=== PATIENT | female | born 1995 | race Caucasian/White ===

== ENCOUNTER 2018-02-19 10:02 | Inpatient (IN) | payer MEDICAID, OTHER ==
[~2018-02-19] VITALS: Ht 162.6 cm; Wt 111.6 kg
[~2018-02-19 10:02] MED LIST: FERR-15 PO; FERR-252 PO; IBUP-974 PO; PREN-385 PO
[2018-02-19 10:09] VITALS: BP 136/79
--- NOTE | 2018-02-19 10:14 | NUR ---
gave report to Alonzo LUDWIG. Patient to restroom to obtain UA sample.
--- NOTE | 2018-02-19 10:14 | NUR ---
PT AMBULATES TO BED 4
--- NOTE | 2018-02-19 10:15 | NUR ---
22/F BIB SELF with c/o right mid back pain x 3 days. Dizziness and headache x yesterday. Patient sts she is 17 wks . LMP 09/23/17. . Patient denies any vaginal bleeding or recent injury or fall. DENIES N/V/D; SKIN IS PINK/WARM/DRY; AAOX4 WITH EVEN AND STEADY GAIT; LUNGS CLEAR BL; HR EVEN AND REGULAR; PT DENIES ANY FEVER, CP, SOB, OR COUGH AT THIS TIME; PATIENT STATES PAIN OF 8/10 AT THIS TIME. PATIENT POSITIONED FOR COMFORT; HOB ELEVATED; BEDRAILS UP X2; BED DOWN. ER MD MADE AWARE OF PT STATUS.
--- NOTE | 2018-02-19 10:15 | NUR ---
Note maxione in EDM - 02/19/18 at 1133 by [facility] / with c/o right mid back pain x 3 days. Dizziness and headache x yesterday. Patient sts she is 17 wks . LMP 09/23/17. . Patient denies any vaginal bleeding or recent injury or fall. hx--patient denies rx-- vitamins
--- NOTE | 2018-02-19 10:32 | NUR ---
Patient being evaluated by DR SERNA at bedside.
[2018-02-19] MEDS ORDERED: NACL 0.9% 1,000 ML IV ONE (10:40)
[2018-02-19] MEDS ORDERED: IBUPROFEN 400 MG TAB PO ONE (10:40)
--- NOTE | 2018-02-19 11:08 | NUR ---
US AT BEDSIDE
[2018-02-19 11:46] LABS: BASOPHILS % (AUTO) 0.4 % (0.0-2.0); EOSINOPHILS % (AUTO) 0.1 % (0.0-4.0); HEMATOCRIT 32.7 % (36-48); HEMOGLOBIN 11.3 g/dL (12.0-16.0); LYMPHOCYTES # (AUTO) 1.2 K/uL (2.5-16.5); LYMPHOCYTES % (AUTO) 12.8 % (20.5-51.1); MEAN CORPUSCULAR HEMOGLOBIN 28 pg (27-31); MEAN CORPUSCULAR HGB CONC 35 g/dL (33-37); MEAN CORPUSCULAR VOLUME 80.6 fL (80-94); MONOCYTES # (AUTO) 0.8 K/uL (0.8-1.0); MONOCYTES % (AUTO) 8.5 % (1.7-9.3); NEUTROPHILS # (AUTO) 7.2 K/uL (1.8-7.7); NEUTROPHILS % (AUTO) 78.2 % (42.2-75.2); PLATELET COUNT (AUTO) 196 K/uL (140-450); RED BLOOD CELL COUNT(AUTO) 4.06 MIL/uL (4.20-5.40); RED CELL DISTRIBUTION WIDTH 13.5 % (11.6-13.7); WHITE BLOOD COUNT (AUTO) 9.2 K/uL (4.8-10.8)
[2018-02-19 11:50] LABS: BILIRUBIN,URINE NEGATIVE (NEGATIVE); BLOOD, URINE NEGATIVE (NEGATIVE); COLOR,URINE YELLOW (YELLOW); LEUKOCYTE ESTERASE ,URINE 2+ (NEGATIVE); NITRITE, URINE NEGATIVE (NEGATIVE); UGLUCOSE NEGATIVE (NEGATIVE)
[2018-02-19 11:58] LABS: ANION GAP 14.5 (8-16); CARBON DIOXIDE 21.8 mmol/L (21-32); CREATININE 0.6 mg/dL (0.6-1.3); POTASSIUM 3.3 mmol/L (3.5-5.1)
[2018-02-19 12:04] LABS: ALBUMIN 2.8 g/dL (3.4-5.0); TOTAL BILIRUBIN 0.4 mg/dL (0.0-1.0)
[2018-02-19 12:16] LABS: APPEARANCE,URINE HAZY (CLEAR); RBC,URINE 0-5 (RARE) /HPF (0-5); WBC,URINE 16-25 (MOD) /HPF (0-5)
[2018-02-19] MEDS ORDERED: cefTRIAXone 1,000 MG VIAL ONE (13:06)
--- NOTE | 2018-02-19 13:08 | NUR ---
LAB AT BEDSIDE FOR BLOOD C/S .
[2018-02-19] MEDS: NACL 0.9% 1,000 ML IV SCH (14:10)
[2018-02-19] MEDS ORDERED: HYDROcodone/APAP 5/325 MG 1 TAB TAB PO PRN (14:10)
[2018-02-19] MEDS ORDERED: LORazepam 2 MG/ML VIAL IVP PRN (14:10)
[2018-02-19] MEDS ORDERED: ACETAMINOPHEN 325 MG TAB PO PRN (14:10)
[2018-02-19] MEDS ORDERED: ONDANSETRON 4 MG/2 ML VIAL IVP PRN (14:10)
[2018-02-19] MEDS ORDERED: MORPHINE SULFATE 2 MG/ML SYR IVP PRN (14:10)
--- NOTE | 2018-02-19 14:43 | NUR ---
PT TAKEN TO THE FLOOR
--- NOTE | 2018-02-19 14:55 | NUR ---
Patient will be admitted to care of DR BLAIR. Admited to MS. Will go to room 121A. Belongings list completed. Report to AYDEE LUDWIG.
--- NOTE | 2018-02-19 15:00 | NUR ---
RECEIVED BEDSIDE REPORT FROM ER NURSE. PATIENT IS AWAKE, ALERT AND ORIENTEDX4. NO SIGNS OF DISTRESS ON ROOM AIR. IV ON L HAND 22G INFUSING NS AT 80ML/HR. IV IS CLEAN, DRY AND INTACT. VITALS ARE WITHIN NORMAL LIMITS. MRSA SCREENING IS DONE. PATIENT IS HUNGRY, ORDERED HER FOOD. SKIN IS INTACT. PATIENT HAS A LITTLE PAIN BUT IT IS TOLERABLE. BED IN LOW POSITION. CALL LIGHT WITHIN REACH. WILL CONTINUE TO MONITOR THE PATIENT.
[2018-02-19 15:10] VITALS: BP 137/70
--- NOTE | 2018-02-19 16:42 | NUR ---
ADMINISTERED MEDS. PATIENT HAS A SLIGHT FEVER OF 99.4 AND CHILLS, DR IS AWARE. PATIENT TOLERATED MED WELL. WILL RECHECK TEMP. BED IN LOW POSITION. CALL LIGHT WITHIN REACH. WILL CONTINUE TO MONITOR THE PATIENT.
--- NOTE | 2018-02-19 17:42 | NUR ---
RECHECK TEMP IT WAS 98.6. GAVE PATIENT A ICE PACK FOR HER HEAD AND REMOVED BLANKETS TO PREVENT FEVER
--- NOTE | 2018-02-19 19:05 | NUR ---
GAVE BEDSIDE REPORT TO SWITCHING CLERK NURSE. PATIENT IN STABLE CONDITION
--- NOTE | 2018-02-19 19:06 | NUR ---
RECEIVED BEDSIDE REPORT FROM DAY NURSE ROSINA RN, PATIENT IS AWAKE, ALERT AND ORIENTEDX4. NO SIGNS OF DISTRESS ON ROOM AIR. IV ON L HAND 22G INFUSING NS AT 80ML/HR. IV IS CLEAN, DRY AND INTACT. VITALS ARE WITHIN NORMAL LIMITS. SKIN IS INTACT. PATIENT DENIES PAIN AT THIS TIME. INITIAL ASSESSMENT COMPLETED. PLAN OF CARE DISCUSSED WITH PT, VERBALIZED UNDERSTANDING. BED IN LOW POSITION. CALL LIGHT WITHIN REACH. WILL CONTINUE TO MONITOR THE PATIENT.
[2018-02-19 20:00] VITALS: BP 126/68
--- NOTE | 2018-02-19 20:09 | NUR ---
PAGED DR. BACH BECAUSE PT REQUESTS TO SHOWER
--- NOTE | 2018-02-19 20:13 | NUR ---
DR. BACH STATES NO SHOWER AND PT CAN ONLY HAVE SPONGE BATH
--- NOTE | 2018-02-19 20:14 | NUR ---
PT STATES SHE DOES NOT WANT TO BE GIVEN A SPONGE BATH, BUT WE WILL PROVIDE HER WITH HYGIENE ITEMS SO THAT SHE CAN WIPE AND CLEAN HERSELF OFF.
[2018-02-20] VITALS: BP 122/59
--- NOTE | 2018-02-20 | NUR ---
PT RESTING COMFORTABLY IN BED. NO S/S OF DISTRESS NOTED.
--- NOTE | 2018-02-20 01:00 | NUR ---
IV NO LONGER FLUSHING, DISCONTINUED WITH TIP IN TACT. NEW IV STARTED IN L WRIST 24G BY BONNY LUDWIG. PT TOLERATED WELL
[2018-02-20] MEDS: NACL 0.9% 1,000 ML IV SCH (02:40)
[2018-02-20 04:00] VITALS: BP 126/62
--- NOTE | 2018-02-20 06:52 | NUR ---
PATIENT HAS BEEN SCREENED AND CATEGORIZED HIGH NUTRITION RISK. PATIENT WILL BE SEEN WITHIN 1-2 DAYS OF ADMISSION. 02/20/18-02/21/18 JEANNIE COTTON MS, RDN
--- NOTE | 2018-02-20 07:34 | NUR ---
REPORT GIVEN TO DAY NURSE FOR CONTINUITY OF CARE, PT IN STABLE CONDITION
--- NOTE | 2018-02-20 07:35 | NUR ---
REPORT RECIEVED FROM CATTLE SORTER, PT AWAKE AELRT, OX4, RESP EVEN UNLAVBORED, DENIES PAIN OR DISCOMFORT, IVF INFUSING WELL, SITE WNL, POC REVIEWED, ALL SAFETY MEASURES IN PLACE WILL CONTINUE TO ELISA, Addendum: 02/20/18 at 1736 by Jammie Cast RN DENIES VAGINAL BLEEDING OR CLEAR LIQ LEAKAGE. ABD SOFT, NON TENDER
[2018-02-20 07:38] LABS: BASOPHILS % (AUTO) 0.2 % (0.0-2.0); EOSINOPHILS % (AUTO) 0.4 % (0.0-4.0); HEMATOCRIT 32.5 % (36-48); HEMOGLOBIN 11.1 g/dL (12.0-16.0); LYMPHOCYTES # (AUTO) 1.1 K/uL (2.5-16.5); LYMPHOCYTES % (AUTO) 14.8 % (20.5-51.1); MEAN CORPUSCULAR HEMOGLOBIN 28 pg (27-31); MEAN CORPUSCULAR HGB CONC 34 g/dL (33-37); MEAN CORPUSCULAR VOLUME 81.1 fL (80-94); MONOCYTES # (AUTO) 0.6 K/uL (0.8-1.0); MONOCYTES % (AUTO) 7.8 % (1.7-9.3); NEUTROPHILS # (AUTO) 5.7 K/uL (1.8-7.7); NEUTROPHILS % (AUTO) 76.8 % (42.2-75.2); PLATELET COUNT (AUTO) 197 K/uL (140-450); RED BLOOD CELL COUNT(AUTO) 4.01 MIL/uL (4.20-5.40); RED CELL DISTRIBUTION WIDTH 13.6 % (11.6-13.7); WHITE BLOOD COUNT (AUTO) 7.4 K/uL (4.8-10.8)
[2018-02-20 07:50] LABS: ANION GAP 13.5 (8-16); CARBON DIOXIDE 22.1 mmol/L (21-32); CREATININE 0.5 mg/dL (0.6-1.3); POTASSIUM 3.6 mmol/L (3.5-5.1)
[2018-02-20 08:00] VITALS: BP 114/65
--- NOTE | 2018-02-20 08:30 | NUR ---
PATIENT HAS BEEN RE-SCREENED AND CATEGORIZED LOW NUTRITION RISK. PATIENT WILL BE SEEN WITHIN 7 DAYS OF ADMISSION. 02/20/18 JEANNIE COTTON MS, RDN
[2018-02-20] MEDS ORDERED: ENOXAPARIN 40 MG/0.4 ML SYR SUBQ SCH (09:00)
--- NOTE | 2018-02-20 10:09 | NUR ---
PT UP OUT OF BED AMBULATES TO BATHROOM WITH STEADY GAIT, DENIES PAIN OR DISCOMFORT, WILL CONTINUE OT MONTIOR.
--- NOTE | 2018-02-20 13:28 | NUR ---
IV ANTIBIOTIC STARTED SCHEDULED, IV CALEB WNL, FLUSHES WELL, PT DENIES ANY IMMEDIATE NEED.
[2018-02-20] MEDS ORDERED: CEPH250C16 PO (14:50)
--- NOTE | 2018-02-20 16:30 | NUR ---
DC INSTRUCTION AND RX GIVEN AND EXPLAINED TO PT, PT VERBALIZED FULL UNDERSTANDING, IV IDC'D, CATH TIP INTACT, BLEEDING CONTOROLLED, ID BANDS CUT OFF. PT UP CHANGING CHLOTHING
--- NOTE | 2018-02-20 16:50 | NUR ---
PT ESCORTED OUT TO FRONT LOBBY IN WHEELCHAIR.
--- NOTE | 2018-02-22 08:55 | NUR ---
RETRO, ER REPORT, H&P FAXED TO [facility] [place] [phone] PHONE ELMA [phone] NO DISCHARGE SUMMRARY.
== END 2018-02-20 16:50 | disposition home or self-care (01) | DRG 566 ==
LOC: MED 10:02 → MTU 14:14 → MMU 02-20 12:21
PROVIDERS: ADMIT Hospitalist; ATTEND Hospitalist
DX: O23.02 Infections of kidney in pregnancy, second trimester (principal); Z68.41 Body mass index [BMI] 40.0-44.9, adult; O99.212 Obesity complicating pregnancy, second trimester; E66.9 Obesity, unspecified; Z3A.18 18 weeks gestation of pregnancy
CPT/HCPCS: 36415; 76770; 76805; 80048; 80053; 81001; 81025; 84702; 85025; 86900; 86901; 87040; 87081; 87086; 96361; 96365; 99285; J0696; J1650; J2270; J7060; Q0092

== ENCOUNTER 2018-03-05 10:57 | Inpatient (IN) | payer OTHER ==
[~2018-03-05] VITALS: Ht 162.6 cm; Wt 108.4 kg
[~2018-03-05 10:57] MED LIST changes: +CEPH250C16 PO
[2018-03-05 11:01] VITALS: BP 129/69
--- NOTE | 2018-03-05 11:08 | NUR ---
PT AMBULATED TO ER BED 5.
--- NOTE | 2018-03-05 11:10 | NUR ---
PATIENT PRESENTS C/O SOB x 6 DAYS. PT 19 WKS , LMP 09/23/2017. A0. AAOX4 WITH EVEN AND STEADY GAIT; LUNGS CLEAR BL; HR EVEN AND REGULAR; PT DENIES ANY FEVER, CP AT THIS TIME; DENIES N/V/D; SKIN IS PINK/WARM/DRY; PATIENT STATES ABDOMINAL PAIN OF 6/10 RADIATING TO LOWER BACK AT THIS TIME; VSS; PATIENT POSITIONED FOR COMFORT; HOB ELEVATED; BEDRAILS UP X2; BED DOWN. ER MD MADE AWARE OF PT STATUS.
[2018-03-05 12:16] LABS: BASOPHILS % (AUTO) 0.3 % (0.0-2.0); EOSINOPHILS # (AUTO) 0.1 K/uL (0-0.4); EOSINOPHILS % (AUTO) 0.8 % (0.0-4.0); HEMOGLOBIN 11.4 g/dL (12.0-16.0); LYMPHOCYTES # (AUTO) 1.5 K/uL (2.5-16.5); LYMPHOCYTES % (AUTO) 18.7 % (20.5-51.1); MEAN CORPUSCULAR HEMOGLOBIN 27 pg (27-31); MEAN CORPUSCULAR HGB CONC 33 g/dL (33-37); MEAN CORPUSCULAR VOLUME 82.2 fL (80-94); MONOCYTES # (AUTO) 0.4 K/uL (0.8-1.0); MONOCYTES % (AUTO) 4.5 % (1.7-9.3); NEUTROPHILS # (AUTO) 6.2 K/uL (1.8-7.7); NEUTROPHILS % (AUTO) 75.7 % (42.2-75.2); PLATELET COUNT (AUTO) 218 K/uL (140-450); RED BLOOD CELL COUNT(AUTO) 4.26 MIL/uL (4.20-5.40); RED CELL DISTRIBUTION WIDTH 13.7 % (11.6-13.7); WHITE BLOOD COUNT (AUTO) 8.2 K/uL (4.8-10.8)
[2018-03-05 12:20] LABS: APPEARANCE,URINE HAZY (CLEAR); BILIRUBIN,URINE NEGATIVE (NEGATIVE); BLOOD, URINE NEGATIVE (NEGATIVE); COLOR,URINE YELLOW (YELLOW); LEUKOCYTE ESTERASE ,URINE 1+ (NEGATIVE); NITRITE, URINE NEGATIVE (NEGATIVE); PH,URINE 6.5 (5.0-9.0); UGLUCOSE NEGATIVE (NEGATIVE)
--- NOTE | 2018-03-05 12:31 | NUR ---
ultrasound at bedside
[2018-03-05 12:41] LABS: RBC,URINE 0-5 (RARE) /HPF (0-5)
[2018-03-05 12:44] LABS: ALBUMIN 2.9 g/dL (3.4-5.0); ANION GAP 15.1 (8-16); CREATININE 0.5 mg/dL (0.6-1.3); POTASSIUM 3.1 mmol/L (3.5-5.1); TOTAL BILIRUBIN 0.2 mg/dL (0.0-1.0)
--- NOTE | 2018-03-05 13:30 | NUR ---
PT IS RESTING IN BED, STILL C/O BACK PAIN, VSS, NO S/S OF DISTRESS.
[2018-03-05] MEDS ORDERED: cefTRIAXone 1,000 MG VIAL ONE (14:09)
[2018-03-05] MEDS ORDERED: ONDANSETRON 4 MG/2 ML VIAL IVP PRN (14:20)
--- NOTE | 2018-03-05 14:50 | NUR ---
Patient will be admitted to care of DR. BONILLA. Admited to MST. Will go to room 106B . Belongings list completed. Report to VANI JAMIL AT BEDSIDE.
--- NOTE | 2018-03-05 14:53 | NUR ---
PT ADMITTED TO [facility]. BEDSIDE REPORT GIVEN BY DAJA LUDWIG. PT AMBULATED TO BED FROM [facility]. WALKED WITH STEADY GAIT. PT IS AAOX4. INTRODUCED SELF AND UPDATED BOARD. PT ABLE TO STATE PMH. STATED ONLY HX IS PREVIOUS KIDNEY INFECTION AND PREGNANCIES. MRSA SWAB DONE. ORIENTED PT TO USE OF CALL LIGHT. VERBALIZED UNDERSTANDING. NO SIGNS OF DISTRESS. WILL CONTINUE TO MONITOR.
[2018-03-05 15:51] VITALS: BP 117/55
[2018-03-05] MEDS: DEXT 5% /NACL 0.9% 1,000 ML IV SCH (16:03)
[2018-03-05] MEDS: ACETAMINOPHEN 325 MG TAB PO PRN ×2 (16:21→19:50)
--- NOTE | 2018-03-05 17:01 | NUR ---
PAGED DR. BONILLA. NO CALL BACK YET
[2018-03-05] MEDS ORDERED: POTASSIUM CHLORIDE 10 MEQ TABER PO SCH (17:30)
--- NOTE | 2018-03-05 17:31 | NUR ---
REPORTED TO DR. BONILLA. K 3.1. ORDERS RECEIVED.
--- NOTE | 2018-03-05 19:08 | NUR ---
ENDORSED PT TO FINISHER POLISHER NURSE ADOLFO AT BEDSIDE FOR CONTINUITY OF CARE. PT IN STABLE CONDITION.
--- NOTE | 2018-03-05 19:09 | NUR ---
REPORT RECEIVED FROM AM NURSE AT BEDSIDE. PT IN STABLE CONDITION. AAOX4. INTRODUCED SELF AND BOARD UPDATED. IV SITE PATENT AND INTACT. SKIN WARM, DRY, AND INTACT WITH NO OPEN WOUNDS. PT IN PAIN 5/10 ON PAIN SCALE. WILL MEDICATE. BED LOCKED IN LOW POSITION. CALL GUO WITHIN REACH. WILL CONTINUE TO MONITOR.
--- NOTE | 2018-03-05 19:50 | NUR ---
PT PAIN 5/10 ON PAIN SCALE. TYL GIVEN FOR PAIN. PT TOLERATED WELL.
--- NOTE | 2018-03-05 20:53 | NUR ---
PAIN REASSESSMENT DONE. PT STATES THAT PAIN IS BETTER.
[2018-03-05] MEDS ORDERED: ALUMINUM HYD/MAG/SIMETHICONE 30 ML UDC PO PRN (22:15)
--- NOTE | 2018-03-05 22:15 | NUR ---
PT LAYING IN BED ON HER PHONE. NOT IN ANY ACUTE DISTRESS. WILL CONTINUE TO MONITOR.
[2018-03-06] VITALS: BP 109/67
[2018-03-06] MEDS: ACETAMINOPHEN 325 MG TAB PO PRN (01:23)
--- NOTE | 2018-03-06 01:23 | NUR ---
PT C/O BACK PAIN. TYL GIVEN FOR PAIN 6/10 ON SCALE. PT TOLERATED WELL.
--- NOTE | 2018-03-06 03:15 | NUR ---
PUT UP NEW BAG OF D5W. PT ASLEEP BUT AWAKENED WHEN IN ROOM. NO C/O PAIN AT THIS TIME. WILL CONTINUE TO MONITOR.
[2018-03-06] MEDS: DEXT 5% /NACL 0.9% 1,000 ML IV SCH (04:01)
--- NOTE | 2018-03-06 05:30 | NUR ---
PT ASLEEP LEFT LATERAL. PT NOT IN ANY ACUTE DISTRESS. CHEST EXPANSION VISIBLE. WILL CONTINUE TO MONITOR.
[2018-03-06 07:06] LABS: BASOPHILS # (AUTO) 0.1 K/uL (0.00-0.22); BASOPHILS % (AUTO) 1.6 % (0.0-2.0); EOSINOPHILS % (AUTO) 0.5 % (0.0-4.0); HEMOGLOBIN 11.1 g/dL (12.0-16.0); LYMPHOCYTES % (AUTO) 27.6 % (20.5-51.1); MEAN CORPUSCULAR HEMOGLOBIN 27 pg (27-31); MEAN CORPUSCULAR HGB CONC 33 g/dL (33-37); MEAN CORPUSCULAR VOLUME 82.7 fL (80-94); MONOCYTES # (AUTO) 0.4 K/uL (0.8-1.0); NEUTROPHILS # (AUTO) 4.5 K/uL (1.8-7.7); NEUTROPHILS % (AUTO) 64.3 % (42.2-75.2); PLATELET COUNT (AUTO) 203 K/uL (140-450); RED BLOOD CELL COUNT(AUTO) 4.11 MIL/uL (4.20-5.40); RED CELL DISTRIBUTION WIDTH 13.5 % (11.6-13.7); WHITE BLOOD COUNT (AUTO) 7.1 K/uL (4.8-10.8)
--- NOTE | 2018-03-06 07:15 | NUR ---
REPORT GIVEN TO AM SHIFT. PT IN STABLE CONDITION.
--- NOTE | 2018-03-06 07:20 | NUR ---
RECEIVED PT FROM CERTIFIED OPHTHALMIC SURGICAL ASSISTANT NURSE, ADOLFO, PT IS AWAKE AND SEATED ON THE BED, TALKING OVER HER CP. SIDE RAILS ARE UP AND CALL LIGHT WITHIN REACH. PT HAS A RT AC PERIPHERAL LINE G. 20, INTACT WITH DEXTROSE 5%-0.9% NACL RUNNING AT 75ML/HR. NO SIGN OF DISTRESS NOTED AND WILL CONTINUE TO MONITOR.
[2018-03-06 07:39] LABS: ALBUMIN 2.5 g/dL (3.4-5.0); ANION GAP 15.4 (8-16); CREATININE 0.6 mg/dL (0.6-1.3); POTASSIUM 3.4 mmol/L (3.5-5.1); TOTAL BILIRUBIN 0.2 mg/dL (0.0-1.0)
[2018-03-06 08:00] VITALS: BP 132/92
[2018-03-06] MEDS ORDERED: MULTIVIT/MIN/CA/FE/FA 1 TAB PO SCH (09:00)
[2018-03-06] MEDS ORDERED: PANTOPRAZOLE 40 MG TABEC PO SCH (09:00)
[2018-03-06] MEDS ORDERED: POTASSIUM CHLORIDE 10 MEQ TABER PO SCH (09:15)
--- NOTE | 2018-03-06 09:45 | NUR ---
DR. BONILLA IS IN THE NURSE'S STATION, INFORMED HIM THAT THE PT'S POTASSIUM LEVEL IS 3.4, DR. BONILLA ACKNOWLEDGED. WILL WAIT FOR FURTHER ORDER FOR THE PT FROM .
--- NOTE | 2018-03-06 09:52 | NUR ---
PATIENT HAS BEEN SCREENED AND CATEGORIZED LOW NUTRITION RISK. PATIENT WILL BE SEEN WITHIN 7 DAYS OF ADMISSION. 03/12/[address]
[2018-03-06] MEDS ORDERED: ONDA4TAB PO (10:04)
[2018-03-06] MEDS ORDERED: CEPH250C16 PO (10:04)
--- NOTE | 2018-03-06 10:09 | NUR ---
ACKNOWLEDGED A DISCHARGE ORDER PLACED BY DR. BONILLA FOR THE PT. WILL FACILITATE DISCHARGE PROCESS AND WILL INFORM THE PT.
--- NOTE | 2018-03-06 11:00 | NUR ---
PAPERS FOR DISCHARGE WERE HANDED TO THE PT AND PT SIGNED IT. PERIPHERAL LINE WAS REMOVED AND IV FLUID WAS STOPPED. SKIN IS INTACT AND ASYMPTOMATIC. NO SIGN OF DISTRESS NOTED. PT VERBALIZED THAT SHE CAN MANGE TO DRESS UP.
--- NOTE | 2018-03-06 11:25 | NUR ---
DISCHARGED PT WITH THE VIA WHEELCHAIR. DISCHARGED INSTRUCTIONS AND PRESCRIPTION TEACHING WERE GIVEN AND PT VERBALIZED UNDERSTANDING. ARM BAND REMOVED. PT IS STABLE AT THIS TIME AND VERBALIZED NO PAIN.
--- NOTE | 2018-03-08 07:18 | NUR ---
RETRO FAXED ER NOTES H&P AND PROGRESS NOTES TO [facility] [phone] NO DISCHARGE SUMMARY.
--- NOTE | 2018-03-11 08:22 | NUR ---
FAXED DISCHARGE SUMMARY TO [facility] [phone]
== END 2018-03-06 11:25 | disposition home or self-care (01) | DRG 566 ==
LOC: MED 10:57 → MTU 14:41
PROVIDERS: ADMIT Internal Medicine; ATTEND Internal Medicine
DX: O23.02 Infections of kidney in pregnancy, second trimester (principal); E87.6 Hypokalemia; K21.9 Gastro-esophageal reflux disease without esophagitis; Z3A.19 19 weeks gestation of pregnancy; O99.612 Diseases of the digestive system complicating pregnancy, second trimester; O99.282 Endocrine, nutritional and metabolic diseases complicating pregnancy, second trimester; D64.9 Anemia, unspecified; O99.012 Anemia complicating pregnancy, second trimester
CPT/HCPCS: 36415; 76705; 80053; 81001; 83605; 83690; 84484; 85025; 87040; 87081; 87086; 93005; 93970; 99291; J0696; J7042; J7060; Q0092

== ENCOUNTER 2019-11-05 07:43 | Emergency (ER) | payer OTHER ==
[~2019-11-05] VITALS: Ht 160 cm; Wt 113.4 kg
[~2019-11-05 07:43] MED LIST changes: -IBUP-974 PO; +ONDA4TAB PO
[2019-11-05 07:46] VITALS: BP 126/70
--- NOTE | 2019-11-05 07:50 | NUR ---
PT AMBULATED TO BED 09
--- NOTE | 2019-11-05 07:54 | NUR ---
DR. KELSEY EVALUATING PT AT BEDSIDE
--- NOTE | 2019-11-05 08:06 | NUR ---
Female Plumber'S Helper, ALPESH LUDWIG, accompanied female patient for Rectal Exam WITH DR KELSEY.
--- NOTE | 2019-11-05 08:07 | NUR ---
LAB AT BEDSIDE
--- NOTE | 2019-11-05 08:09 | NUR ---
pt c/o rectal bleeding, bright red blood, x this am and luq pain /10. Denies diarrhea or constipation. pt states normal bm.pt Denies nausea, vomiting. States mild dizziness but states she has not eaten this am. abdomen round and soft, non-tender to touch. vs stable. pt alert and awake. Hx- denies
[2019-11-05 08:16] LABS: BASOPHILS # (AUTO) 0.1 K/uL (0.00-0.22); BASOPHILS % (AUTO) 0.6 % (0.0-2.0); EOSINOPHILS # (AUTO) 0.2 K/uL (0-0.4); EOSINOPHILS % (AUTO) 1.7 % (0.0-4.0); HEMATOCRIT 41.8 % (36-48); HEMOGLOBIN 13.7 g/dL (12.0-16.0); LYMPHOCYTES # (AUTO) 2.7 K/uL (2.5-16.5); LYMPHOCYTES % (AUTO) 29.2 % (20.5-51.1); MEAN CORPUSCULAR HEMOGLOBIN 27 pg (27-31); MEAN CORPUSCULAR HGB CONC 33 g/dL (33-37); MEAN CORPUSCULAR VOLUME 83.4 fL (80-94); MONOCYTES # (AUTO) 0.4 K/uL (0.8-1.0); MONOCYTES % (AUTO) 4.7 % (1.7-9.3); NEUTROPHILS # (AUTO) 5.9 K/uL (1.8-7.7); NEUTROPHILS % (AUTO) 63.8 % (42.2-75.2); PLATELET COUNT (AUTO) 282 K/uL (140-450); RED BLOOD CELL COUNT(AUTO) 5.01 MIL/uL (4.20-5.40); RED CELL DISTRIBUTION WIDTH 13.8 % (11.6-13.7); WHITE BLOOD COUNT (AUTO) 9.2 K/uL (4.8-10.8)
[2019-11-05 08:40] LABS: ANION GAP 10.7 (8-16); CARBON DIOXIDE 26.4 mmol/L (21-32); CREATININE 0.8 mg/dL (0.6-1.3); POTASSIUM 4.1 mmol/L (3.5-5.1)
--- NOTE | 2019-11-05 09:53 | NUR ---
pt sleeping, woken up for vitals
[2019-11-05 10:48] VITALS: BP 117/57
--- NOTE | 2019-11-05 10:48 | NUR ---
Patient discharged with v/s stable.Patient educated about hemorrhoids and what to do if it persists for more than 2 days. Patient intsructed to follow up with physician in regards to colonoscopy. Written and verbal after care instructions given and explained. Patient verbalized understanding. Ambulatory with steady gait. All questions addressed prior to discharge. Advised to follow up with PMD.
== END 2019-11-05 10:48 | disposition home or self-care (01) ==
LOC: MED 07:43
DX: K62.5 Hemorrhage of anus and rectum (principal); Z79.899 Other long term (current) drug therapy
CPT/HCPCS: 36415; 80048; 85025; 99283

== ENCOUNTER 2021-03-21 14:55 | Emergency (ER) | payer OTHER ==
[~2021-03-21] VITALS: Ht 162.6 cm; Wt 109.3 kg
[2021-03-21 15:07] VITALS: BP 125/65
--- NOTE | 2021-03-21 15:27 | NUR ---
DR HERRERA AT BEDSIDE EVALUATING PT
[2021-03-21] MEDS ORDERED: ACETAMINOPHEN EXTRA STRENGTH 500 MG TAB PO ONE (15:30)
[2021-03-21] MEDS ORDERED: ACET-8386 PO (15:54)
--- NOTE | 2021-03-21 15:59 | NUR ---
25 FEMALE THAT IS 10 WEEKS AND FELL DOWN 6 STEPS AT AROUND 9 AM TODAY. PATIENT STATES SHE TRIPPED AND FELL BACKWARD, LANDING ON HER BACK. PATIENT STATES SHE HIT HER HEAD BUT DENIES LOC. PATIENT DOES NOT BELIEVE SHE HIT HER STOMACH. PT DENIES ANY VOMITING BUT NOW HAS A HEADACHE AND NAUSEA. PT DENIES ANY SOB, CHEST PAIN, STOMACH PAIN, OR VAGINAL BLEEDING AT THIS TIME NO PMH NKDA
[2021-03-21 16:24] VITALS: BP 125/65
--- NOTE | 2021-03-21 16:25 | NUR ---
Patient discharged with v/s stable. Written and verbal after care instructions given and explained. Patient alert, oriented and verbalized understanding of instructions. Ambulatory with steady gait. All questions addressed prior to discharge. ID band removed. Patient advised to follow up with PMD. Rx of NORCO 5-325 MG PO PRN Q6 HRS FOR PAIN given. Patient educated on indication of medication including possible reaction and side effects. Opportunity to ask questions provided and answered.
== END 2021-03-21 16:25 | disposition home or self-care (01) ==
LOC: MED 14:55
DX: O26.891 Other specified pregnancy related conditions, first trimester (principal); M54.5 Low back pain; Z3A.10 10 weeks gestation of pregnancy; W19.XXXA Unspecified fall, initial encounter; Y93.89 Activity, other specified; Y92.89 Other specified places as the place of occurrence of the external cause; Y99.8 Other external cause status
CPT/HCPCS: 99284

== ENCOUNTER 2021-04-17 23:11 | Emergency (ER) | payer OTHER ==
[~2021-04-17] VITALS: Ht 162.6 cm; Wt 110.2 kg
[~2021-04-17 23:11] MED LIST changes: +ACET-8386 PO
[2021-04-17 23:20] VITALS: BP 110/67
--- NOTE | 2021-04-17 23:23 | NUR ---
TO LOBBY A/W BED AMBULATORY
--- NOTE | 2021-04-17 23:50 | NUR ---
TO BED AMBULATORY
[2021-04-18] MEDS ORDERED: ONDANSETRON 4 MG/2 ML VIAL IVP ONE (00:05)
[2021-04-18] MEDS ORDERED: MECLIZINE 25 MG TAB PO ONE (00:05)
[2021-04-18] MEDS ORDERED: NACL 0.9% 1,000 ML IV ONE ×3 (00:05→03:55)
[2021-04-18 00:40] LABS: BASOPHILS % (AUTO) 0.3 % (0.0-2.0); EOSINOPHILS # (AUTO) 0.1 K/uL (0-0.4); EOSINOPHILS % (AUTO) 1.2 % (0.0-4.0); HEMATOCRIT 34.6 % (36-48); HEMOGLOBIN 11.4 g/dL (12.0-16.0); LYMPHOCYTES # (AUTO) 2.8 K/uL (2.5-16.5); LYMPHOCYTES % (AUTO) 27.7 % (20.5-51.1); MEAN CORPUSCULAR HEMOGLOBIN 28 pg (27-31); MEAN CORPUSCULAR HGB CONC 33 g/dL (33-37); MEAN CORPUSCULAR VOLUME 83.7 fL (80-94); MONOCYTES # (AUTO) 0.6 K/uL (0.8-1.0); MONOCYTES % (AUTO) 5.9 % (1.7-9.3); NEUTROPHILS # (AUTO) 6.5 K/uL (1.8-7.7); NEUTROPHILS % (AUTO) 64.9 % (42.2-75.2); PLATELET COUNT (AUTO) 239 K/uL (140-450); RED BLOOD CELL COUNT(AUTO) 4.13 MIL/uL (4.20-5.40)
[2021-04-18 01:02] LABS: ANION GAP 12.9 (8-16); ASPARTATE AMINOTRANSFERASE 15 U/L (15-37); CARBON DIOXIDE 23.3 mmol/L (21-32); CHLORIDE 106 mmol/L (98-107); CREATININE 0.7 mg/dL (0.6-1.3); GFR ARICAN-AMERICAN 130 mL/min (>90); GLUCOSE 90 mg/dL (74-106); POTASSIUM 3.2 mmol/L (3.5-5.1); SODIUM SERUM 139 mmol/L (136-145); TOTAL BILIRUBIN 0.2 mg/dL (0.0-1.0); UREA NITROGEN, BLOOD 5 mg/dL (7-18)
[2021-04-18] MEDS ORDERED: ONDANSETRON 4 MG/2 ML VIAL ONE (01:14)
--- NOTE | 2021-04-18 01:25 | NUR ---
25 YO F BIB SELF WITH C/C OF DIZZINESS X1DAY. PT STATED SHE HAD 3 NOSEBLEEDS ON 04/17 AT WORK THEN BEGAN TO STUMBLE. DURING EKG PT STATED SHE HAD CHEST PAIN 04/09 THAT COMES AND GOES. DENIES N/V/D/CHILLS. PT HAS EPISODES OF BRADYCARDIA AND BEGINS TO STARE OFF, ONCE TAPPED OR SPOKEN TO SHE SHAKES HER HEAD AND BEGINS ANSWERING. ERMD MADE AWARE. ORDERS CARRIED OUT. PT STATED SHE IS 14 WKS . DENIES HX AND RX NKA
--- NOTE | 2021-04-18 01:53 | NUR ---
IV PUT IN AT 0135, CHARTING DELAYED.
[2021-04-18 02:05] LABS: BARBITURATE, URINE NEGATIVE ng/ml (NEG <=200); BENZODIAZEPINE, URINE NEGATIVE ng/mL (NEG <=200); CANNABINOID, URINE NEGATIVE ng/mL (NEG <=50); COCAINE, URINE NEGATIVE ng/mL (NEG <=300); OPIATE, URINE NEGATIVE ng/mL (NEG <=2000); PHENCYCLIDINE SCREEN,URINE NEGATIVE ng/mL (NEG <=25)
--- NOTE | 2021-04-18 02:18 | NUR ---
PT IS SLEEPING. EQUAL RISE AND FALL OF CHEST WALL. OPENS EYES IF TOUCHES. PT IS IN STABLE CONDITION. BED LOCKED IN LOWEST POSITION, SIDE RAILS X2.
--- NOTE | 2021-04-18 03:48 | NUR ---
BP DROPPING, PLACED IN TRENDELENBURGS. ERMD MADE AWARE, ORDERED NS 1000 BOLUS AND NS 100ML MAINTENCE FLUIDS. ORDERS CARRIED OUT.
--- NOTE | 2021-04-18 04:32 | NUR ---
PT IN STABLE CONDITION. VSS. BP INCREASED. PT RESTING, EQUAL RISE AND FALL OF CHEST WALL. BED LOCKED IN LOWEST POSITION, SIDE RAILS X2.
--- NOTE | 2021-04-18 05:40 | NUR ---
REPORT GIVEN TO VANI LUCERO AT [facility]. ETA 10 MINS.
--- NOTE | 2021-04-18 05:42 | NUR ---
PT IN STABLE CONDITION. VSS. BP INCREASED. PT RESTING, EQUAL RISE AND FALL OF CHEST WALL. BED LOCKED IN LOWEST POSITION, SIDE RAILS X2.
--- NOTE | 2021-04-18 05:46 | NUR ---
vincenzo collected and taken to lab by akbar louis.
[2021-04-18 06:00] VITALS: BP 118/58
--- NOTE | 2021-04-18 06:00 | NUR ---
Patient to be transferred to [facility] ER. Is being transferred due to HIGHER LEVEL OF CARE. Receiving facility has accepting physician and available space. ER physician has signed transfer form. Patient or responsible libertarian has agreed to transfer and signed form. Patient belongings inventoried and will be sent with patient. Copy of nursing notes, lab reports, EKG, Physicians Orders and X-rays to be sent with patient. Report called to VANI LUCERO at receiving facility. [facility] ambulance service has been called for transfer. ETA is 10.
== END 2021-04-18 06:00 | disposition short-term general hospital (02) ==
LOC: MED 23:11
DX: O26.892 Other specified pregnancy related conditions, second trimester (principal); Z20.822 Contact with and (suspected) exposure to COVID-19; R42 Dizziness and giddiness; R27.0 Ataxia, unspecified; E87.6 Hypokalemia; Z3A.15 15 weeks gestation of pregnancy; Z79.899 Other long term (current) drug therapy
CPT/HCPCS: 36415; 70450; 76805; 80053; 80305; 84484; 84702; 85025; 85379; 87426; 93005; 96361; 96374; 99285; G0482; J2405; J8597

== ENCOUNTER 2022-07-17 09:36 | Inpatient (IN) | payer OTHER ==
[~2022-07-17] VITALS: Ht 162.6 cm; Wt 112.9 kg
[2022-07-17 09:39] VITALS: BP 136/87
--- NOTE | 2022-07-17 09:50 | NUR ---
PT ASSISTED TO BED VIA WC
--- NOTE | 2022-07-17 09:55 | NUR ---
26 y/o F BIB self from home with child c/o dizziness, chest pain, SOB since 1300 yesterday. Patient A&Ox4, ambulatory, states she was at [employer] yesterday and began feeling dizzy; states chest pain and SOB occurred after. Reports sternal 6/10, stinging/intermittent, non-radiating pain. Alleviates with resting; worsens with movement. Denies OTC meds today. Denies cough, fever, chills, headache, blurry vision, abdominal pain, lower extremity pain. lead solutions architect in place. Bed locked in lowest position, side rails x 1. PMH: migraine headaches Meds: Ibuprofen NKDA Sx:
[2022-07-17] MEDS ORDERED: methylPREDNISolone SS 125 MG/2 ML VIAL IVP ONE (10:30)
[2022-07-17] MEDS ORDERED: ALBUTEROL SULFATE/IPRATROPIU 3 ML SOL IH ONE ×2 (10:30→10:31)
[2022-07-17] MEDS ORDERED: MAG SULF 2000 MG/WATER PREMIX 50 ML IV ONE (10:30)
--- NOTE | 2022-07-17 10:44 | NUR ---
RT at bedside for breathing tx
--- NOTE | 2022-07-17 10:48 | NUR ---
Lab at bedside
[2022-07-17 11:08] LABS: BASOPHILS % (AUTO) 0.4 % (0.0-2.0); EOSINOPHILS # (AUTO) 0.1 K/uL (0-0.4); EOSINOPHILS % (AUTO) 1.2 % (0.0-4.0); HEMATOCRIT 41.7 % (36-48); HEMOGLOBIN 13.8 g/dL (12.0-16.0); LYMPHOCYTES # (AUTO) 2.3 K/uL (2.5-16.5); LYMPHOCYTES % (AUTO) 28.5 % (20.5-51.1); MEAN CORPUSCULAR HEMOGLOBIN 27 pg (27-31); MEAN CORPUSCULAR HGB CONC 33 g/dL (33-37); MEAN CORPUSCULAR VOLUME 80.6 fL (80-94); MONOCYTES # (AUTO) 0.6 K/uL (0.8-1.0); MONOCYTES % (AUTO) 7.7 % (1.7-9.3); NEUTROPHILS % (AUTO) 62.2 % (42.2-75.2); PLATELET COUNT (AUTO) 256 K/uL (140-450); RED BLOOD CELL COUNT(AUTO) 5.17 MIL/uL (4.20-5.40); RED CELL DISTRIBUTION WIDTH 14.6 % (11.6-13.7)
--- NOTE | 2022-07-17 11:15 | NUR ---
Pt HR 142; pt noted with increased SOB and back pain. Magnesium sulfate IVPB stopped and Dr. Sarkar made aware.
--- NOTE | 2022-07-17 11:15 | NUR ---
Pt states "SOB and chest pain returned after using bedpan." connie scratcher remains in place.
--- NOTE | 2022-07-17 11:17 | NUR ---
Per Dr. Sarkar, hold Mag sulfate infusion.
--- NOTE | 2022-07-17 11:17 | NUR ---
Dr. Sarkar reevaluating pt at bedside
--- NOTE | 2022-07-17 11:18 | NUR ---
EMT at bedside for repeat EKG
--- NOTE | 2022-07-17 11:23 | NUR ---
11:22 DR SARGENT CONTACTED AND TRANSFERRED TO DR CRISTINA
[2022-07-17] MEDS ORDERED: NACL 0.9% 1,000 ML IV ONE (11:25)
[2022-07-17] MEDS ORDERED: METOPROLOL 25 MG TAB PO ONE (11:25)
[2022-07-17] MEDS ORDERED: IBUP-2213 PO (11:34)
--- NOTE | 2022-07-17 11:35 | NUR ---
Patient transported to CT accompanied by RN; attached to library monitor.
[2022-07-17 11:37] LABS: PROTHROMBIN TIME 9.7 secs (10.8-13.4)
[2022-07-17 11:38] LABS: APPEARANCE,URINE CLEAR (CLEAR); BILIRUBIN,URINE NEGATIVE (NEGATIVE); BLOOD, URINE NEGATIVE (NEGATIVE); COLOR,URINE YELLOW (YELLOW); LEUKOCYTE ESTERASE ,URINE 2+ (NEGATIVE); NITRITE, URINE POSITIVE (NEGATIVE); UGLUCOSE NEGATIVE (NEGATIVE)
[2022-07-17 11:47] LABS: RBC,URINE 0-5 /HPF (0-5)
--- NOTE | 2022-07-17 11:47 | NUR ---
Patient returned from CT and placed back onto nuclear monitoring technician. IVF continued. Bed locked in lowest position, side rails x 2 for pt safety.
[2022-07-17 11:53] LABS: CARBON DIOXIDE 21.7 mmol/L (21-32); CREATININE 0.7 mg/dL (0.6-1.3); POTASSIUM 3.7 mmol/L (3.5-5.1); TOTAL BILIRUBIN 0.3 mg/dL (0.0-1.0)
--- NOTE | 2022-07-17 12:32 | NUR ---
Patient states need to void. ROSS Hernandez assisted patient with bedpan.
[2022-07-17] MEDS ORDERED: HYDROcodone/APAP 5/325 MG 1 TAB TAB PO PRN (12:40)
[2022-07-17] MEDS ORDERED: ACETAMINOPHEN 325 MG TAB PO PRN (12:40)
[2022-07-17] MEDS ORDERED: MORPHINE SULFATE 4 MG/ML SYR IVP PRN (12:40)
[2022-07-17] MEDS ORDERED: cefTRIAXone 1,000 MG VIAL ONE (12:50)
--- NOTE | 2022-07-17 13:09 | NUR ---
Patient resting in high-fowlers position with ekg monitor tech in place. Pt denies chest pain; states constant discomfort but overall feels better; 3/10 pain at this time. Bed locked in lowest position, side rails x 1.
[2022-07-17 14:02] VITALS: BP 115/54
--- NOTE | 2022-07-17 14:02 | NUR ---
PT ARRIVED TO [facility] FROM ER VIA GURNEY. PT ALERT AND ORIENTED X4. LABORED BREATHING. IV ON R A/C 20G. SALINE LOCK. V/S TEMP 98.4, PULSE 74, BP 115/54, RR 20 AND O2 SATURATING AT 99%. PT ORIENTED TO UNIT, ROOM AND RESTROOM. CALL LIGHT WITHIN REACH. ALL SAFETY MEASURES IN PLACE.
--- NOTE | 2022-07-17 14:14 | NUR ---
Patient will be admitted to care of Dr. Brush. Admited to Telemetry. Will go to room 121B. Belongings list completed. Report to ROSS Carias.
[2022-07-17 16:00] VITALS: BP 115/54
--- NOTE | 2022-07-17 16:00 | NUR ---
PT REQUEST SOMETHING TO EAT. PT GIVEN A SANDWICH AND SNACKS. PT TOLERATING FOOD WELL.
[2022-07-17] MEDS ORDERED: ALBUTEROL SULFATE/IPRATROPIU 3 ML SOL IH PRN (17:00)
--- NOTE | 2022-07-17 18:30 | NUR ---
PT REPORTS SHE FEELS LIKE HER BODY IS COVERED IN ANTS. INFORMED DR DOCKERY. AWAITING RESPONSE
--- NOTE | 2022-07-17 18:50 | NUR ---
ORDERED BREATHING TREATMENT FOR PT. RT CALLED. RT ON WAY TO INITIATE BREATHING TREATMENT.
--- NOTE | 2022-07-17 19:00 | NUR ---
PT C/O OF CHEST PAIN. MEDICATED WITH MORPHINE BY VANI GILMAN.
--- NOTE | 2022-07-17 19:25 | NUR ---
ENDORSED PT TO MACHINE PACK ASSEMBLER NURSE FOR CONTINUITY OF CARE. PT STABLE. ALL NEEDS MET THROUGHOUT SHIFT.
--- NOTE | 2022-07-17 19:25 | NUR ---
rt at bedside , per endorse to pt just got breathing txt - pt w/ o2 at 2lpm/nc , call light within reach - for closely watch .
[2022-07-17 20:00] VITALS: BP_SYST 130; BP_DIAS 70; BP_DIAS 85
--- NOTE | 2022-07-17 20:00 | NUR ---
RT AT BEDSIDE , RT JUST GAVE BREATHING TXT TO THE PT , O2 SAT 98 % , ON O2 AT 2LPM/NC , WILL CONT. TO MONITOR . ON TELE MONITOR THE TRACING IS W/ PVC'S AND BIGEMINY BUT DENIES CHEST PAIN AND /OR PALPITATIONS AT THIS TIME - FOR CLOSELY WATCH .
--- NOTE | 2022-07-17 21:32 | NUR ---
VISITS PT - PT TEXTING , NO COMPLAIN MADE , CALL LIGHT WITHIN REACH .
[2022-07-18] VITALS: BP_SYST 123; BP_SYST 125; BP_DIAS 66; BP_DIAS 73
--- NOTE | 2022-07-18 | NUR ---
ON TELE MONITOR - W/ PVC'S AND BIGEMINY - VISIT THE PT I ASK HER ARE YOU OK ? SHE SAID YES I'M OK - NO S/SX OF ACUTE DISTRESS NOTED AT THIS TIME , O2 SAT WNL , CALL LIGHT WITHIN REACH , WILL CONT. TO MONITOR .
--- NOTE | 2022-07-18 02:00 | NUR ---
SLEEPING, AROUSABLE BY SOUNDS AND TOUCH . NO S/SX OF ACUTE DISTRESS NOTED AT THIS TIME , ON O2 SAT MONITORING - 98 %
[2022-07-18 04:00] VITALS: BP 122/88
--- NOTE | 2022-07-18 04:00 | NUR ---
O2 SAT 98 % NO COMPLAIN MADE , REMEINDS PT SHE IS ON BEDREST , ON PURE WICK
[2022-07-18 05:42] LABS: HEMATOCRIT 43.3 % (36-48); HEMOGLOBIN 14.2 g/dL (12.0-16.0); LYMPHOCYTES # (AUTO) 1.3 K/uL (2.5-16.5); LYMPHOCYTES % (AUTO) 7.1 % (20.5-51.1); MEAN CORPUSCULAR HEMOGLOBIN 27 pg (27-31); MEAN CORPUSCULAR HGB CONC 33 g/dL (33-37); MEAN CORPUSCULAR VOLUME 81.5 fL (80-94); MONOCYTES # (AUTO) 0.6 K/uL (0.8-1.0); MONOCYTES % (AUTO) 3.3 % (1.7-9.3); NEUTROPHILS # (AUTO) 16.7 K/uL (1.8-7.7); NEUTROPHILS % (AUTO) 89.6 % (42.2-75.2); PLATELET COUNT (AUTO) 278 K/uL (140-450); RED BLOOD CELL COUNT(AUTO) 5.31 MIL/uL (4.20-5.40); RED CELL DISTRIBUTION WIDTH 15.1 % (11.6-13.7); WHITE BLOOD COUNT (AUTO) 18.6 K/uL (4.8-10.8)
[2022-07-18 06:15] LABS: PHOSPHORUS 3.9 mg/dL (2.5-4.9)
[2022-07-18 06:19] LABS: ANION GAP 16.4 (8-16); CARBON DIOXIDE 20.7 mmol/L (21-32); CREATININE 0.7 mg/dL (0.6-1.3); POTASSIUM 4.1 mmol/L (3.5-5.1)
--- NOTE | 2022-07-18 06:35 | NUR ---
GIVING AN UPDATE TO DR SARGENT - PT'S STILL HAVE PVC'S AND BIGEMINY .
--- NOTE | 2022-07-18 06:40 | NUR ---
I ENDORSE TO VANI FLOR I GAVE AN UPDATE TO DR. SARGENT THAT THE PT'S HAVE STILL PVC'S AND BIGEMINY - SHE HAVE TO FF UP IF DR. SARGENT WILL MAKE FURTHER ORDERS , VANI FLOR VERBALIZES UNDERSTANDING .
[2022-07-18 08:00] VITALS: BP_SYST 112; BP_DIAS 51; BP_DIAS 61
--- NOTE | 2022-07-18 08:47 | NUR ---
AT BEDSIDE WITH PT FOR PRN BREATHING TX. NOTICED PT HR WAS LOW IN THE 40S THEN WOULD INCREASE TO THE 60S. PULSE PROBE WAS CHANGED AND MULTIPLE PULSE OX WERE USED TO DETERMINE ACCURACY. RN AWARE OF THIS AND WILL CONTINUE TO MONITOR. SPO2 WAS 100% ON 2L NC. PT SHOWED SIGNS OF SOB. RN AWARE PT WAS GIVEN A TREATMENT AND O2 IS GOOD. WILL CONTINUE TO MONITOR.
[2022-07-18] MEDS: ALPRAZolam 0.5 MG TAB PO SCH ×2 (09:00→20:51)
[2022-07-18] MEDS: ENOXAPARIN 40 MG/0.4 ML SYR SUBQ SCH (09:02)
[2022-07-18] MEDS: METOPROLOL 25 MG TAB PO SCH (09:05)
--- NOTE | 2022-07-18 10:26 | NUR ---
PATIENT HAS BEEN SCREENED AND CATEGORIZED LOW NUTRITION RISK. PATIENT WILL BE SEEN WITHIN 7 DAYS OF ADMISSION. 07/24/[address] JAN ULLOA RD
[2022-07-18 12:00] VITALS: BP_SYST 107; BP_SYST 122; BP_DIAS 65; BP_DIAS 88
--- NOTE | 2022-07-18 15:14 | NUR ---
DC PLANNING SW MET WITH PT AT BEDSIDE TO COMPLETE ASSESSMENT. PT REPORTS RESIDING IN A SINGLE STORY HOME WITH HER PARTNER AND CHILDREN AT THE ADDRESS LISTED ON FILE. PT IDENTIFIED JARAD DORSEY, PARTNER, AND ALISON SHAH, SISTER, EMERGENCY CONTACTS. PT DENIES AD IN PLACE AND DECLINED AD OFFERED BY SW. PT DENIES CURRENTLY TAKING MEDICATION AT THIS TIME AND DENIES BARRIERS IN ACCESS TO MEDICATION, IF NEEDED. PT REPORTS RECEIVING MEDICATION FROM [facility] [place], WHEN NEEDED. PT REPORTS BEING INDEPENDENT IN ALL ACTIVITIES AND DENIES USE OF DME. PT COMPLETES ALL ADL'S INDEPENDENTLY. PT DENIES HX OF HH, DIABETES, DIALYSIS. PT REPORTS DC PLAN IS TO RETURN HOME [employer] PARTNER PROVIDING TRANSPORTATION, WHEN MEDICALLY STABLE. Addendum: 07/18/22 at 1516 by Marybel WILKINS Amended: Links added.
[2022-07-18 16:00] VITALS: BP 111/70
--- NOTE | 2022-07-18 19:46 | NUR ---
GET THE REPORT FROM MORNING NURSE ADZE, PATIENT IS LYING ON BED, PATIENT IS ALERT ORIENTED X4, ALL FALL PRECAUTION MEASURE ARE IN PLACE, CALL LIGHT IS WITHIN THE REACH, WILL CONTINUE TO MONITOR PATIENT.
[2022-07-18 20:00] VITALS: BP 108/69
--- NOTE | 2022-07-18 20:51 | NUR ---
PATIENT IS LYING ON BED, NO ANY COMPLAIN OF PAIN OR SHORTNESS OF BREATH AT THIS TIME, VITAL SIGN IS WITHIN THE NORMAL RANGE, ALL SCHEDULE MEDICATION IS GIVEN PER DOCTOR ORDER, CALL LIGHT IS WITHIN THE REACH, WILL CONTINUE TO MONITOR PATIENT.
[2022-07-19] VITALS: BP 101/65
--- NOTE | 2022-07-19 00:13 | NUR ---
VITAL SIGN IS WITHIN THE NORMAL RANGE, PATIENT IS LYING ON BED, NO ANY COMPLAIN OF PAIN OR SHORTNESS OF BREATH AT THIS TIME, CALL LIGHT IS WITHIN THE REACH, WILL CONTINUE TO MONITOR PATIENT.
--- NOTE | 2022-07-19 03:17 | NUR ---
JUST CAME BACK FROM BREAK AND NOTICE THAT PATIENT HEART RATE IS UNSTABLE, TRIGEMINY, BIGEMINY, HEART RATE GOES TO 40/MIN, PATIENT TOOK OFF TELE MONITOR AND REFUSING TO PUT BACK ON, PATIENT WANTS TO GO HOME BY AMA, PATIENT IS REFUSING ANY ANXIETY MEDICATION, MASSAGE DOCTOR SARKIS ABOUT PATIENT , WAITING FOR DOCTOR TO RESPONSE, CALL LIGHT IS WITHIN THE REACH, WILL CONTINUE TO MONITOR PATIENT.
--- NOTE | 2022-07-19 03:30 | NUR ---
PAGE DOCTOR SARKIS ABOUT PATIENT WAITING FOR DOCTOR TO RESPONSE, CALL LIGHT IS WITHIN THE REACH, WILL CONINUE TO MONITOR PATIENT.
--- NOTE | 2022-07-19 03:36 | NUR ---
CALM THE PATIENT DOWN, REQUEST HER TO PUT TELE MONITOR BACK, SHE AGREE TO PUT BACK BUT SHE STATED THAT IF SHE DONT GET SEEN BY [facility] BEFORE 11 AM , SHE WILL GO HOME AMA, HEART RATE CAME BACK TO SR 65/MIN,HEMALATHA MASSAGE DOCTOR MSG ABOUT PATIENT RECENT HEART RATE , STILL WAITING FOR DOCTOR TO CALL BACK, CALL LIGHT IS WITHIN THE REACH, WILL CONTINUE TO MONITOR PATIENT.
--- NOTE | 2022-07-19 03:57 | NUR ---
DOCTOR SARKIS REPLIED BACK WITH HE WILL FOLLOW UP WHEN HE GET HERE, WILL CONTINUE TO MONITOR PATIENT.
[2022-07-19 04:00] VITALS: BP 116/78
--- NOTE | 2022-07-19 04:07 | NUR ---
PATIENT IS LYING ON BED, NO ANY COMPLAIN OF PAIN OR SHORTNESS OF BREATH AT THIS TIME, VITAL SIGN IS WITHIN THE NORMAL RANGE, CALL LIGHT IS WITHIN THE REACH, WILL CONTINUE TO MONITOR PATIENT.
[2022-07-19 06:02] LABS: BASOPHILS # (AUTO) 0.1 K/uL (0.00-0.22); BASOPHILS % (AUTO) 0.5 % (0.0-2.0); EOSINOPHILS # (AUTO) 0.1 K/uL (0-0.4); EOSINOPHILS % (AUTO) 0.8 % (0.0-4.0); HEMATOCRIT 41.2 % (36-48); HEMOGLOBIN 13.4 g/dL (12.0-16.0); LYMPHOCYTES # (AUTO) 4.3 K/uL (2.5-16.5); LYMPHOCYTES % (AUTO) 37.9 % (20.5-51.1); MEAN CORPUSCULAR HEMOGLOBIN 26 pg (27-31); MEAN CORPUSCULAR HGB CONC 33 g/dL (33-37); MONOCYTES # (AUTO) 0.8 K/uL (0.8-1.0); MONOCYTES % (AUTO) 7.2 % (1.7-9.3); NEUTROPHILS # (AUTO) 6.1 K/uL (1.8-7.7); NEUTROPHILS % (AUTO) 53.6 % (42.2-75.2); PLATELET COUNT (AUTO) 264 K/uL (140-450); RED BLOOD CELL COUNT(AUTO) 5.09 MIL/uL (4.20-5.40); RED CELL DISTRIBUTION WIDTH 15.1 % (11.6-13.7); WHITE BLOOD COUNT (AUTO) 11.5 K/uL (4.8-10.8)
[2022-07-19 06:37] LABS: ANION GAP 10.7 (8-16); CARBON DIOXIDE 27.4 mmol/L (21-32); CREATININE 0.9 mg/dL (0.6-1.3); POTASSIUM 4.1 mmol/L (3.5-5.1)
[2022-07-19 06:47] LABS: MAGNESIUM 2.1 mg/dL (1.8-2.4); PHOSPHORUS 3.8 mg/dL (2.5-4.9)
--- NOTE | 2022-07-19 07:22 | NUR ---
GAVE THE REPORT TO MORNING NURSE ADZE FOR CONTINUOS OF CARE, PATIENT IS STABLE.
[2022-07-19] MEDS: ALPRAZolam 0.5 MG TAB PO SCH (09:00)
[2022-07-19] MEDS: METOPROLOL 25 MG TAB PO SCH (09:00)
[2022-07-19] MEDS: ENOXAPARIN 40 MG/0.4 ML SYR SUBQ SCH (09:00)
[2022-07-19] MEDS ORDERED: FLEC100T1 PO (15:04)
[2022-07-19 16:07] VITALS: BP 116/78
--- NOTE | 2022-07-19 16:45 | NUR ---
PATIENT DISCHARGED HOME. ACCOMPANIED BY BROTHER. DISCHARGE INSTRUCTIONS GIVE. PATIENT VEBALIZED UNDERSTANDING. STABLE UPON DISCHARGE.
== END 2022-07-19 17:00 | disposition home or self-care (01) | DRG 141 ==
LOC: MED 09:36 → OBSVTOIN 12:44 → MTU 12:44
PROVIDERS: ADMIT Hospitalist; ATTEND Emergency Medicine
DX: J45.909 Unspecified asthma, uncomplicated (principal); J96.01 Acute respiratory failure with hypoxia; R65.11 Systemic inflammatory response syndrome (SIRS) of non-infectious origin with acute organ dysfunction; Z68.41 Body mass index [BMI] 40.0-44.9, adult; E66.9 Obesity, unspecified; F41.9 Anxiety disorder, unspecified; Z20.822 Contact with and (suspected) exposure to COVID-19; I10 Essential (primary) hypertension; I49.3 Ventricular premature depolarization; R00.8 Other abnormalities of heart beat; G47.33 Obstructive sleep apnea (adult) (pediatric)
CPT/HCPCS: 36415; 71045; 71275; 80048; 80053; 81001; 82550; 82553; 82803; 83605; 83735; 83880; 84100; 84484; 85025; 85379; 85610; 85730; 87040; 87081; 87086; 93005; 94640; J0696; J1650; J2270; J2930; J3475; Q9967